=== PATIENT | female | born 1990 | race Caucasian/White ===

== ENCOUNTER 2019-04-23 19:03 | Emergency (ER) | payer OTHER ==
[~2019-04-23] VITALS: Ht 167.6 cm; Wt 54.4 kg
[2019-04-29] MEDS ORDERED: MIRALAX510 GM PO (03:08)
== END 2019-04-23 21:48 | disposition home or self-care (01) ==
LOC: ER 19:03
DX: K52.9 Noninfective gastroenteritis and colitis, unspecified (principal)

== ENCOUNTER → 2019-04-28 | Emergency (ER) | payer OTHER ==
[~2019-04-28] VITALS: Ht 167.6 cm; Wt 58.5 kg
[~2019-04-28] MED LIST: MIRALAX510 GM PO
== END | disposition home or self-care (01) ==
LOC: ER 19:55
DX: O21.0 Mild hyperemesis gravidarum (principal); Z34.01 Encounter for supervision of normal first pregnancy, first trimester

== ENCOUNTER 2019-12-08 06:02 | Inpatient (IN) | payer OTHER ==
[~2019-12-08] VITALS: Ht 167.6 cm; Wt 73.9 kg
[2019-12-08] MEDS ORDERED: FOLBEE PLUS CZ1 EACH PO (07:06)
[2019-12-08] MEDS ORDERED: PEPCID AC10 MG PO (07:06)
[2019-12-08] MEDS ORDERED: PRENATAL TABLE1 EAC3 PO (07:06)
== END 2019-12-11 14:56 | DRG 807 ==
LOC: LDR 06:02 → OB/GYN 12-09 22:50 → LDR 12-09 22:59 → OB/GYN 12-10 12:12
PROVIDERS: ADMIT Obstetrics & Gynecology; ATTEND Obstetrics & Gynecology
PROC: 4A0HXFZ Measurement of Products of Conception, Cardiac Rhythm, External Approach (ICD-10-PCS; 2019-12-08)
PROC: 10E0XZZ Delivery of Products of Conception, External Approach (ICD-10-PCS; principal; 2019-12-09)
PROC: 0W8NXZZ Division of Female Perineum, External Approach (ICD-10-PCS; 2019-12-09)
DX: O80 Encounter for full-term uncomplicated delivery (principal); Z37.0 Single live birth; Z3A.39 39 weeks gestation of pregnancy; Z20.828 Contact with and (suspected) exposure to other viral communicable diseases